=== PATIENT | female | born 1990 | race Two or more races ===

== ENCOUNTER 2019-05-09 12:46 | Emergency (ER) | payer OTHER ==
[2019-05-09 12:56] VITALS: BP 97/55; PULSE 66; TEMP 98.5; BMI 23.4
--- NOTE | 2019-05-09 12:59 | PDOC ---
Rapid Medical Evaluation Chief Complaint: Back Pain Time Seen by Provider: 05/09/19 12:54 Medical Evaluation: Allergies Allergy/AdvReac Type Severity Reaction Status Date / Time No Known Allergies Allergy Verified 05/09/19 12:53 Vital Signs Temp Pulse Resp BP Pulse Ox 98.5 F 66 16 97/55 L 100 05/09/19 12:54 05/09/19 12:54 05/09/19 12:54 05/09/19 12:54 05/09/19 12:54 05/09/19 12:57 Patient complaints of: rt flank pain, dark urine x 4 days, no fever, nausea, irreg menses Patient on brief exam: mild rt cva tenderness, no ruq pain, vss Patient ordered for: labs and urine Patient to proceed to the ED Discharge Disposition - Diagnosis Strain of muscle at thorax level - Discharge Dispostion Disposition: HOME Condition at time of disposition: Stable - Prescriptions Prescriptions: Cyclobenzaprine HCl [Flexeril 10 mg] 10 mg PO HS PRN #10 tablet PRN Reason: Muscle Spasms Cyclobenzaprine HCl [Flexeril 10 mg] 10 mg PO HS PRN #10 tablet PRN Reason: Muscle Spasms Ibuprofen [Motrin -] 600 mg PO TID #30 tablet Ibuprofen [Motrin -] 600 mg PO TID #30 tablet - Referrals Referrals: John Phillips MD [Staff Physician] - - Patient Instructions Printed Discharge Instructions: Thoracic Back Pain Additional Instructions: Please use prescription strength Motrin as directed. One tablet 3 times a day with food. Discontinue the medication if it bothers her stomach. Return to the emergency room for worsening symptoms. The muscle relaxers one tablet before bedtime. Will make you sleepy. Did not start the anti-inflammatory Motrin until tomorrow. She was given an injection of a long-acting anti-inflammatory in the emergency room today. Follow-up with orthopedic spine surgery in 1-2 days for further evaluation and treatment options and return to the emergency room should symptoms worsen. - Post Discharge Activity
[2019-05-09] MEDS ORDERED: KETOROLAC TROMETHAMINE 60 MG/2 ML VIAL IM ONE (13:19)
[2019-05-09] MEDS ORDERED: KETOROLAC TROMETHAMINE 60 MG/2 ML VIAL ONE (13:25)
--- NOTE | 2019-05-09 13:25 | PDOC ---
History of Present Illness - General Chief Complaint: Back Pain Stated Complaint: BACK PAIN Time Seen by Provider: 05/09/19 12:54 - History of Present Illness Initial Comments: 05/09/19 13:19 29-year-old female without comorbidities presents for evaluation of 3 days worth of right-sided mid back pain. No radiation of symptoms or systemic symptoms. No urinary symptoms. Past History - Past Medical History Allergies/Adverse Reactions: Allergies Allergy/AdvReac Type Severity Reaction Status Date / Time No Known Allergies Allergy Verified 05/09/19 12:53 Home Medications: Ambulatory Orders Cyclobenzaprine HCl [Flexeril 10 mg] 10 mg PO HS PRN #10 tablet 05/09/19 Ibuprofen [Motrin -] 600 mg PO TID #30 tablet 05/09/19 CVA: No COPD: No CHF: No DVT: No - Immunization History Immunization Up to Date: Yes - Suicide/Smoking/Psychosocial Hx Smoking History: Never smoked Information on smoking cessation initiated: No Hx Alcohol Use: No Drug/Substance Use Hx: No Review of Systems - Review of Systems Constitutional: No: Fever Musculoskeletal: Yes: Back Pain *Physical Exam - Vital Signs Last Vital Signs Temp Pulse Resp BP Pulse Ox 98.5 F 66 16 97/55 L 100 05/09/19 12:54 05/09/19 12:54 05/09/19 12:54 05/09/19 12:54 05/09/19 12:54 - Physical Exam Comments: 05/09/19 13:19 Thoracolumbar spine skin color and temperature are normal. Range of motion is full. There is mild right-sided parathoracic and lumbar musculature spasm and tenderness. Negative on the left. 5 out of 5 strength in bilateral upper and lower extremities without gross sensory motor deficits. Neurovascular intact. Medical Decision Making - Medical Decision Making 05/09/19 13:20 I have reviewed the triage note. My examination is different. The patient has musculoskeletal back pain. I will treat her with an injection of Toradol Motrin and Flexeril at home with instructions to follow-up with orthopedic spine surgery and instructions to return to the emergency room should symptoms worsen. *DC/Admit/Observation/Transfer Diagnosis at time of Disposition: Strain of muscle at thorax level Diagnosis at time of Disposition: (Ruled Out): Flank pain - Discharge Dispostion Disposition: HOME Condition at time of disposition: Stable Decision to Admit order: No - Referrals Referrals: John Phillips MD [Staff Physician] - - Patient Instructions Printed Discharge Instructions: Thoracic Back Pain Additional Instructions: Please use prescription strength Motrin as directed. One tablet 3 times a day with food. Discontinue the medication if it bothers her stomach. Return to the emergency room for worsening symptoms. The muscle relaxers one tablet before bedtime. Will make you sleepy. Did not start the anti-inflammatory Motrin until tomorrow. She was given an injection of a long-acting anti-inflammatory in the emergency room today. Follow-up with orthopedic spine surgery in 1-2 days for further evaluation and treatment options and return to the emergency room should symptoms worsen. - Post Discharge Activity
== END 2019-05-09 13:55 | disposition home or self-care (01) ==
LOC: JERFT 12:46
PROC: 3E0233Z Introduction of Anti-inflammatory into Muscle, Percutaneous Approach (ICD-10-PCS; principal; 2019-05-09)
DX: M54.6 Pain in thoracic spine (principal)
CPT/HCPCS: 96372; 99281-25

== ENCOUNTER 2019-06-02 14:04 | Emergency (ER) | payer OTHER ==
--- NOTE | 2019-06-02 14:14 | PDOC ---
Rapid Medical Evaluation Chief Complaint: Urinary Problem Time Seen by Provider: 06/02/19 14:12 Medical Evaluation: Allergies Allergy/AdvReac Type Severity Reaction Status Date / Time No Known Allergies Allergy Verified 05/09/19 12:53 06/02/19 14:12 This patient had a brief in-person evaluation by me. cc: burning with urination x 3 days reports blood in urine PE:NAD even and unlabored breathing No flank tenderness Orders: u/a, urine preg, urine culture This patient will proceed to Ed for further evaluation Discharge Disposition - Diagnosis Dysuria - Referrals - Patient Instructions - Post Discharge Activity
[2019-06-02 14:15] VITALS: BP 102/60; PULSE 65; TEMP 98.5; BMI 22.6
--- NOTE | 2019-06-02 14:48 | PDOC ---
History of Present Illness - General Chief Complaint: Urinary Problem Stated Complaint: BLOOD IN THE URINE Time Seen by Provider: 06/02/19 14:12 History Source: Patient Exam Limitations: No Limitations - History of Present Illness Travel History: No Initial Comments: 06/02/19 14:47 Patient came for evaluation of 3 days onset of pain, burning, frequency and noted blood this morning and her urine. States felt had a urinary tract infection one month ago and was treated here but in fact treatment was for low back strain and was given cyclobenzaprine and Toradol. States had improvement for proximally one week but had recurrence of the symptoms with now dysuria and bleeding to urine. Timing/Duration: reports: getting worse Quality: reports: mild, moderate, stabbing Abdominal Pain Onset Location: reports: suprapubic Pain Radiation: reports: no radiation Activities at Onset: reports: none Past History - Travel Traveled outside of the country in the last 30 days: No Close contact w/someone who was outside of country & ill: No - Past Medical History Allergies/Adverse Reactions: Allergies Allergy/AdvReac Type Severity Reaction Status Date / Time No Known Allergies Allergy Verified 06/02/19 14:14 Home Medications: Ambulatory Orders Cyclobenzaprine HCl [Flexeril 10 mg] 10 mg PO HS PRN #10 tablet 05/09/19 Cyclobenzaprine HCl [Flexeril 10 mg] 10 mg PO HS PRN #10 tablet 05/09/19 Ibuprofen [Motrin -] 600 mg PO TID #30 tablet 05/09/19 Ibuprofen [Motrin -] 600 mg PO TID #30 tablet 05/09/19 Nitrofurantoin Monohyd/M-Cryst [Macrobid -] 100 mg PO BID #14 capsule 06/02/19 CVA: No COPD: No CHF: No DVT: No - Immunization History Immunization Up to Date: Yes - Suicide/Smoking/Psychosocial Hx Smoking History: Never smoked Information on smoking cessation initiated: No Hx Alcohol Use: No Drug/Substance Use Hx: No Review of Systems - Review of Systems Able to Perform ROS?: Yes Is the patient limited [place] Citizen proficient: Yes Constitutional: Yes: Symptoms Reported, See HPI, Malaise. No: Fever HEENTM: Yes: See HPI. No: Symptoms Reported Respiratory: Yes: See HPI. No: Symptoms reported, Cough : Yes: Symptoms Reported, See HPI, Burning, Dysuria, Hematuria Musculoskeletal: No: Symptoms Reported All Other Systems: Reviewed and Negative *Physical Exam - Vital Signs Last Vital Signs Temp Pulse Resp BP Pulse Ox 98.5 F 65 17 102/60 100 06/02/19 14:12 06/02/19 14:12 06/02/19 14:12 06/02/19 14:12 06/02/19 14:12 - Physical Exam General Appearance: Yes: Nourished, Appropriately Dressed HEENT: positive: VENKAT, Normal ENT Inspection, TMs Normal Neck: positive: Supple. negative: Tender Respiratory/Chest: positive: Lungs Clear Gastrointestinal/Abdominal: positive: Tender (mild suprapubic tenderness, no rebound or guarding), Soft. negative: Distended, Guarding, Rebound Musculoskeletal: positive: Normal Inspection. 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 We' ll start on antibiotics *DC/Admit/Observation/Transfer Diagnosis at time of Disposition: Dysuria - Discharge Dispostion Disposition: HOME Condition at time of disposition: Stable Decision to Admit order: No - Prescriptions Prescriptions: Nitrofurantoin Monohyd/M-Cryst [Macrobid -] 100 mg PO BID #14 capsule - Referrals - Patient Instructions Printed Discharge Instructions: DI for Urinary Tract Infection (UTI) Additional Instructions: Rest, drink lots of fluids: Teas, water, soups Avoid contact with others until fevers and symptoms resolved Lots of handwashing and good hygiene Continue [id number] medications for symptomatic relief Tylenol or Motrin for fever and pain Continue all of antibiotics until completed Followup with private physician in one week for repeat urinalysis/reevaluation Return to emergency department for worsened symptoms, fevers, dehydration - Post Discharge Activity Forms/Work/School Notes: Back to Work
[2019-06-02 15:09] LABS: HCG,QUALITATIVE URINE Negative
[2019-06-02 15:18] LABS: EPI CELLS 4.8 /HPF (0-5/HPF); HYALINE CASTS 4 /lpf (0-8); URINE APPEARANCE CLEAR; URINE BILIRUBIN NEGATIVE (NEGATIVE); URINE COLOR YELLOW; URINE GLUCOSE (UA) NEGATIVE (NEGATIVE); URINE KETONE NEGATIVE (NEGATIVE); URINE LEUK ESTERASE TRACE (NEGATIVE); URINE NITRITE NEGATIVE (NEGATIVE); URINE PROTEIN NEGATIVE (NEGATIVE); URINE RBC 1 /hpf (0-4); URINE UROBILINOGEN 0.2 mg/dL (0.2-1.0); URINE WBC 2 /hpf (0-5)
== END 2019-06-02 15:44 | disposition home or self-care (01) ==
LOC: JERFT 14:04
DX: N39.0 Urinary tract infection, site not specified (principal)
CPT/HCPCS: 81003; 84703; 87086; 99281-25

== ENCOUNTER 2019-09-15 13:06 | Emergency (ER) | payer OTHER ==
[2019-09-15 13:19] VITALS: BP 96/58; PULSE 88; TEMP 98.3; BMI 22.6
--- NOTE | 2019-09-15 13:52 | PDOC ---
History of Present Illness - General Chief Complaint: Cold Symptoms Stated Complaint: COUGHING Time Seen by Provider: 09/15/19 13:43 - History of Present Illness Initial Comments: 09/15/19 13:51 29-year-old female without comorbidities presents for evaluation of cough and headache x6 days. Seen at up another hospital she brings an x-ray report which showed a possible left lower lobe pneumonia she was not given antibiotics she continues to be symptomatic with worsening cough she complains of shortness of breath and cough when laying flat at night. Past History - Past Medical History Allergies/Adverse Reactions: Allergies Allergy/AdvReac Type Severity Reaction Status Date / Time No Known Allergies Allergy Verified 06/02/19 14:14 Home Medications: Ambulatory Orders Cyclobenzaprine HCl [Flexeril 10 mg] 10 mg PO HS PRN #10 tablet 05/09/19 Cyclobenzaprine HCl [Flexeril 10 mg] 10 mg PO HS PRN #10 tablet 05/09/19 Ibuprofen [Motrin -] 600 mg PO TID #30 tablet 05/09/19 Ibuprofen [Motrin -] 600 mg PO TID #30 tablet 05/09/19 Nitrofurantoin Monohyd/M-Cryst [Macrobid -] 100 mg PO BID #14 capsule 06/02/19 Azithromycin [Zithromax -] 250 mg PO UTDICT #6 tab 09/15/19 Guaifenesin Dm [Mucinex Dm -] 1 tab PO BID #60 tab.er.12h 09/15/19 Cardiac Disorders: (ASD) CVA: No COPD: No CHF: No DVT: No - Surgical History Cardiac Surgery: Yes (ASD REPAIR) - Immunization History Immunization Up to Date: Yes - Psycho Social/Smoking Cessation Hx Smoking History: Never smoked Have you smoked in the past 12 months: No Information on smoking cessation initiated: No Hx Alcohol Use: No Drug/Substance Use Hx: No Review of Systems - Review of Systems Constitutional: No: Fever Respiratory: Yes: Cough Neurological: Yes: Headache *Physical Exam - Vital Signs Last Vital Signs Temp Pulse Resp BP Pulse Ox 98.3 F 88 18 96/58 L 98 09/15/19 13:16 09/15/19 13:16 09/15/19 13:16 09/15/19 13:16 09/15/19 13:16 - Physical Exam Comments: 09/15/19 13:52 GENERAL: The patient is awake, alert, and fully oriented, in no acute distress. HEAD: Normal with no signs of trauma. EYES: sclera anicteric, conjunctiva clear. ENT: Ears normal NECK: Normal range of motion LUNGS: Breath sounds equal, clear to auscultation bilaterally. No wheezes, and no crackles. HEART: S1 and S2 without murmur, rub or gallop. ABDOMEN: Soft, nontender, normoactive bowel sounds. No guarding, no rebound. No masses. EXTREMITIES: Normal range of motion, no edema. No clubbing or cyanosis. No cords, erythema, or tenderness. NEUROLOGICAL: Cranial nerves II through XII grossly intact. Normal speech, normal gait. PSYCH: Normal mood, normal affect. SKIN: Warm, Dry, normal turgor, no rashes or lesions noted. ED Treatment Course - RADIOLOGY Radiology Studies Ordered: Category Date Time Status CHEST PA & LAT [RAD] Stat Radiology 09/15/19 13:45 Ordered Medical Decision Making - Medical Decision Making 09/15/19 13:54 No appreciable consolidation or infiltrate on radiograph I will treat her with Zithromax for bronchitis and have her follow-up with PCP Discharge - Discharge Information Problems reviewed: Yes Clinical Impression/Diagnosis: Bronchitis Condition: Stable Disposition: HOME - Admission No - Follow up/Referral Referrals: ON STAFF,NOT [Primary Care Provider] - - Patient Discharge Instructions Additional Instructions: Please take the antibiotics and cough medicine as directed. Return to the emergency room for worsening symptoms. Without fail, please follow-up with internal medicine in 1 to 2 days for further evaluation and treatment options. - Post Discharge Activity
== END 2019-09-15 13:58 | disposition home or self-care (01) ==
LOC: JERFT 13:06
DX: J40 Bronchitis, not specified as acute or chronic (principal); Z86.79 Personal history of other diseases of the circulatory system
CPT/HCPCS: 71046-TC-FY; 99281-25

== ENCOUNTER 2019-12-24 13:47 | Emergency (ER) | payer OTHER ==
[2019-12-24 14:02] VITALS: BP 93/50; PULSE 71; TEMP 98.7; BMI 22.4
[2019-12-24] MEDS ORDERED: ONDANSETRON 4 MG/2 ML VIAL IVPUSH ONE (14:02)
[2019-12-24] MEDS ORDERED: SODIUM CHLORIDE 1,000 ML IV STA (14:02)
--- NOTE | 2019-12-24 14:02 | PDOC ---
Rapid Medical Evaluation Time Seen by Provider: 12/24/19 13:56 Medical Evaluation: Allergies Allergy/AdvReac Type Severity Reaction Status Date / Time No Known Allergies Allergy Verified 12/24/19 13:57 12/24/19 13:57 CC: epigastric pain which worsens postprandially and non-bloody diarrhea x1 episode PE: No abd tenderness Orders: abdominal w/u Patient will proceed to the ED for further evaluation. 12/24/19 14:01 Discharge Disposition - Diagnosis Epigastric pain - Referrals - Patient Instructions - Post Discharge Activity
[2019-12-24 14:48] LABS: BASO % 0.7 % (0-2.0); EOS % 6.4 % (0-4.5); LYMPH % 37.6 % (8-40); MCH 26.4 pg (25.7-33.7); MCHC 32.6 g/dl (32.0-36.0); MEAN CELL VOLUME 81.2 fl (80-96); MEAN PLT VOLUME 8.4 fl (7.5-11.1); MONO % 7.3 % (3.8-10.2); PLATELET COUNT 281 K/MM3 (134-434); RBC 4.93 M/mm3 (3.60-5.2); RDW 12.7 % (11.6-15.6); WHITE BLOOD COUNT 4.2 K/mm3 (4.0-10.0)
[2019-12-24 14:52] LABS: EPI CELLS 9.5 /HPF (0-5/HPF); HYALINE CASTS 7 /lpf (0-8); URINE APPEARANCE CLOUDY; URINE BACTERIA 34.9 /hpf (NEGATIVE); URINE BILIRUBIN NEGATIVE (NEGATIVE); URINE COLOR YELLOW; URINE GLUCOSE (UA) NEGATIVE (NEGATIVE); URINE KETONE NEGATIVE (NEGATIVE); URINE LEUK ESTERASE 1+ (NEGATIVE); URINE NITRITE NEGATIVE (NEGATIVE); URINE PROTEIN TRACE (NEGATIVE); URINE RBC 425 /hpf (0-4); URINE WBC 9 /hpf (0-5)
[2019-12-24 15:22] LABS: ALBUMIN 3.8 g/dl (3.4-5.0); ALK PHOS 81 U/L (45-117); ANION GAP 4 MMOL/L (8-16); BILIRUBIN,TOTAL 1.5 mg/dL (0.2-1); BLOOD UREA NITROGEN 10.7 mg/dL (7-18); CALCIUM 8.8 mg/dL (8.5-10.1); CHLORIDE 108 mmol/L (98-107); CO2 27 mmol/L (21-32); CREATININE 0.7 mg/dL (0.55-1.3); GLUCOSE,RANDOM 79 mg/dL (74-106); LIPASE 105 U/L (73-393); SGOT/AST 12 U/L (15-37); SGPT/ALT 18 U/L (13-61); SODIUM 138 mmol/L (136-145); TOT PROT 7.2 g/dl (6.4-8.2)
[2019-12-24] MEDS ORDERED: ONDANSETRON 4 MG/2 ML VIAL ONE (15:34)
--- NOTE | 2019-12-24 17:20 | PDOC ---
History of Present Illness - General Chief Complaint: Vomiting/Diarrhea Stated Complaint: VOMITING/DIARRHEA Time Seen by Provider: 12/24/19 13:56 History Source: Patient Exam Limitations: No Limitations - History of Present Illness Initial Comments: 12/24/19 17:09 Patient is a 29 year old female with h/o ASD with repair at 22 y.o c/o epigastric pain pain which started at 8 PM yesterday assoc/w nausea and vomiting which started at 9 pm and diarrhea starting 12 pm today. Currently has no nausea or vomiting. Pain in the epigastrium is burning 2/10 today, constant. States ate brown rice, (tomatoes onion and cilantro), beans, cheese at 11:30 am. States when she got home she had brown rice and meat at about 4: 30pm but was OK after eating. She had Advil x 2 for menstrual cramping and directly after having the ablate pill she had epigastric pain and symptoms progressed. She had diarrhea episode x 1 and came in because she was concerned about the diarrhea and wanted to have herself checked out. States her stomach is making noises and wanted to know if that was OK. Denies fever, chills, dysuria, chest pain, dizziness. PMD: Dr. Milan Uribe PMHX: as above PSOCHX: neg cig, drug, etoh ALL: NKDA GENERAL/CONSTITUTIONAL: [No fever or chills. No weakness. No weight change.] HEAD, EYES, EARS, NOSE AND THROAT: [No change in vision. No ear pain or discharge. No sore throat.] CARDIOVASCULAR: [No chest pain or shortness of breath.] RESPIRATORY: [No cough, wheezing, or hemoptysis.] GASTROINTESTINAL: [(+) nausea, vomiting, diarrhea (-) constipation. No rectal bleeding.] GENITOURINARY: [No dysuria, frequency, or change in urination.] MUSCULOSKELETAL: [No joint or muscle swelling or pain. No neck or back pain.] SKIN AND BREASTS: [No rash or easy bruising.] NEUROLOGIC: [No headache, vertigo, loss of consciousness, or loss of sensation.] PSYCHIATRIC: [No depression or anxiety.] ENDOCRINE: [No increased thirst. No abnormal weight change.] HEMATOLOGIC/LYMPHATIC: [No anemia, easy bleeding, or history of blood clots.] ALLERGIC/IMMUNOLOGIC: [No hives or skin allergy. No latex allergy.] GENERAL: [The patient is awake, alert, and fully oriented, in no acute distress. ] HEAD: [Normal with no signs of trauma.] EYES: [Pupils equal, round and reactive to light, extraocular movements intact, sclera anicteric, conjunctiva clear.] ENT: [Ears normal, nares patent, oropharynx clear without exudates. Moist mucous membranes.] NECK: [Normal range of motion, supple without lymphadenopathy, JVD, or masses.] LUNGS: [Breath sounds equal, clear to auscultation bilaterally. No wheezes, and no crackles.] HEART: [Regular rate and rhythm, normal S1 and S2 without murmur, rub.] ABDOMEN: [Soft, nontender, normoactive bowel sounds. No guarding, no rebound. No masses.] EXTREMITIES: [Normal range of motion, no edema. No clubbing or cyanosis. No cords, erythema, or tenderness.] NEUROLOGICAL: [Cranial nerves II through XII grossly intact. Normal speech, normal gait.] PSYCH: [Normal mood, normal affect.] SKIN: [Warm, Dry, normal turgor, no rashes or lesions noted.] Past History - Past Medical History Allergies/Adverse Reactions: Allergies Allergy/AdvReac Type Severity Reaction Status Date / Time No Known Allergies Allergy Verified 12/24/19 13:57 Home Medications: Ambulatory Orders NK [No Known Home Medication] 12/24/19 Cardiac Disorders: (ASD) CVA: No COPD: No CHF: No DVT: No - Surgical History Cardiac Surgery: Yes (ASD REPAIR) - Immunization History Immunization Up to Date: Yes - Psycho Social/Smoking Cessation Hx Smoking History: Never smoked Have you smoked in the past 12 months: No Hx Alcohol Use: No Drug/Substance Use Hx: No *Physical Exam - Vital Signs Last Vital Signs Temp Pulse Resp BP Pulse Ox 98.7 F 71 16 93/50 L 100 12/24/19 13:57 12/24/19 13:57 12/24/19 13:57 12/24/19 13:57 12/24/19 13:57 ED Treatment Course - LABORATORY CBC & Chemistry Diagram: 12/24/19 14:22 12/24/19 14:22 - ADDITIONAL ORDERS Additional order review: Laboratory Results 12/24/19 12/24/19 14:22 14:22 Sodium 138 Potassium 4.0 Chloride 108 H Carbon Dioxide 27 Anion Gap 4 L BUN 10.7 Creatinine 0.7 Est GFR (CKD-EPI)AfAm 133.81 Est GFR (CKD-EPI)NonAf 115.45 Random Glucose 79 Calcium 8.8 Total Bilirubin 1.5 H AST 12 L ALT 18 Alkaline Phosphatase 81 Creatine Kinase 64 Troponin I < 0.02 Total Protein 7.2 Albumin 3.8 Lipase 105 Urine Color Yellow Urine Appearance Cloudy Urine pH 5.0 Ur Specific [place] 1.025 Urine Protein Trace Urine Glucose (UA) Negative Urine Ketones Negative Urine Blood 3+ H Urine Nitrite Negative Urine Bilirubin Negative Urine Urobilinogen 1.0 Ur Leukocyte Esterase 1+ H Urine WBC (Auto) 9 Urine RBC (Auto) 425 Urine Casts (Auto) 7 U Epithel Cells (Auto) 9.5 Urine Bacteria (Auto) 34.9 12/24/19 14:22 RBC 4.93 MCV 81.2 MCHC 32.6 RDW 12.7 MPV 8.4 Neutrophils % 48.0 Lymphocytes % 37.6 Monocytes % 7.3 Eosinophils % 6.4 H Basophils % 0.7 - Medications Given in the ED: ED Medications Discontinued Medications Generic Name Dose Route Start Last Admin Trade Name Freq PRN Reason Stop Dose Admin Sodium Chloride 1,000 mls @ 1,000 mls/hr 12/24/19 14:02 12/24/19 15:41 Normal Saline - IV 12/24/19 15:01 1,000 mls/hr ASDIR STA Administration Ondansetron HCl 4 mg 12/24/19 14:02 12/24/19 15:42 Zofran Injection IVPUSH 12/24/19 14:03 4 mg ONCE ONE Administration Medical Decision Making - Medical Decision Making 12/24/19 17:09 Patient is a 29 year old female with h/o ASD with repair at 22 y.o c/o epigastric pain pain which started at 8 PM yesterday assoc/w nausea and vomiting which started at 9 pm and diarrhea starting 12 pm today. Currently has no nausea or vomiting. Pain in the epigastrium is burning 2/10 today, constant. States ate brown rice, (tomatoes onion and cilantro), beans, cheese at 11:30 am. States when she got home she had brown rice and meat at about 4: 30pm but was OK after eating. She had Advil x 2 for menstrual cramping and directly after having the ablate pill she had epigastric pain and symptoms progressed. She had diarrhea episode x 1 and came in because she was concerned about the diarrhea and wanted to have herself checked out. States her stomach is making noises and wanted to know if that was OK. Denies fever, chills, dysuria, chest pain, dizziness. Patient had symptoms of gastroenteritis which is now resolved. She is tolerating po. labs reviewed no acute finding - patient currently menstruating and so has blood in urine EKG SR rate 55, NAD, (-) ST-T wave changes Blood pressure noted patient states that since her surgery she has had low blood pressure. 12/24/19 17:38 I discussed the physical exam findings, ancillary test results and final diagnoses with the patient. I answered all of the patient's questions. The patient was satisfied with the care received and felt comfortable with the discharge plan and treatment plan. The Patient agrees to follow up with the primary care Discharge - Discharge Information Problems reviewed: Yes Clinical Impression/Diagnosis: Epigastric pain, Nausea vomiting and diarrhea Condition: Stable Disposition: HOME - Follow up/Referral Referrals: ON STAFF,NOT [Non Staff, Medical] - - Patient Discharge Instructions Patient Printed Discharge Instructions: DI for Diarrhea and Traveler's Diarrhea -- Adult, DI for Vomiting -- Adult, DI for Epigastric Pain Additional Instructions: Your Discharge Instructions: You must call primary care physician within 24 hours to arrange follow-up. Return to the Emergency Department with any new, persistent or worsening symptoms, for fever, chills, SOB, dizziness or any other concerning changes that may occur. 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 - Post Discharge Activity Work/Back to School Note: Back to Work
--- NOTE | 2019-12-25 12:42 | EKG ---
Test Reason : Blood Pressure : / mmHG Vent. Rate : 055 BPM Atrial Rate : 055 BPM P-R Int : 144 ms QRS Dur : 090 ms QT Int : 440 ms P-R-T Axes : 051 088 065 degrees QTc Int : 420 ms SINUS BRADYCARDIA LOW VOLTAGE QRS BORDERLINE ECG NO PREVIOUS ECGS AVAILABLE Confirmed by MARY ELLEN GARNICA, ANNIE ([id number]) on 12/25/2019 12:42:14 PM Referred By: Confirmed By:ANNIE HYDE MD
== END 2019-12-24 18:11 | disposition home or self-care (01) ==
LOC: JER 13:47
PROC: 3E033GC Introduction of Other Therapeutic Substance into Peripheral Vein, Percutaneous Approach (ICD-10-PCS; principal; 2019-12-24)
DX: R10.13 Epigastric pain (principal)
CPT/HCPCS: 36415; 80053; 81003; 82550; 83690; 84484; 85025; 87086; 93005; 93010; 99282-25; J7030